=== PATIENT | male | born 1955 | race Caucasian/White ===

== ENCOUNTER 2017-03-10 14:16 | Emergency (ER) | payer OTHER ==
[~2017-03-10 14:16] MED LIST: ADDERALL 10 MG10 M1 PO; ALBUTEROL17 GM; ALLEGRA; ALLEGRA180 MG; AMIODARONE HCL200 MG PO; BETHANECHOL CHL25 M1 PO; BUPROPION HCL200 M1 PO; BUPROPION HCL200 MG PO; BUSPIRONE HCL15 M2 PO; CARTIA XT; CARTIA XT240 MG; CATAPRES0.1 M1 PO; CATAPRES0.1 MG PO; CLARITIN-D 241 EAC2 PO; CVS SENNA PLUS1 EACH PO; CYMBALTA60 M1 PO; DILTIAZEM 24HR240 M2 PO; DUONEB 2.5-0.5 M3 ML; EPINEPHRINE; EPIPEN0.3 MG/0.2 IM; EPIPEN0.3 MG/0.3 IM; FLUTICASONE PRO16 GM INH; GLUCOSE PO; HUMALOG KW200 UNIT/1 SC; HUMALOG U SC; HUMALOG100 U/ML SQ; HUMULIN R U; HYZAAR; HYZAAR 100-25 T1 TAB; HYZAAR 100-251 EACH PO; IMDUR; IMDUR60 MG; INSULIN PUMP1 EACH; INVOKANA100 MG PO; IPRAT-ALBUT 0.5-3 ML INH; ISOSORBIDE MONO60 M3 PO; KLONOPIN0.5 MG/TAB; LATUDA40 M1 PO; LATUDA40 MG PO; LIPITOR; LIPITOR20 M1 PO; LIPITOR20 MG PO; LIPITOR40 MG; LORATADINE PO; METFORMIN HCL500 M2 PO; MULTAQ400 M1 PO; NASONEX17 GM; NEURONTIN300 M1 PO; NOVOLOG100 U/M; PACERONE100 M1 PO; PATANASE30.5 G1; PATANASE30.5 GM NS; PLAVIX75 M1 PO; PLAVIX75 MG; POLYETHYLENE G255 G1 PO; PREDNISONE10 M1 PO; PREDNISONE10 MG; PREDNISONE5 M1 PO; PROTONIX; PROTONIX40 M2 PO; PROTONIX40 MG; PROVENTIL HFA6.7 G1 INH; PROVENTIL HFA6.7 GM INH; PROVENTIL17 GM; PSEUDOEPHEDRINE PO; PULMICORT; PULMICORT0.5 MG/2 M; RITALIN10 MG; ROSUVASTATIN5 MG/TAB PO; SINGULAIR; SINGULAIR10 M1 PO; SINGULAIR10 MG; SINGULAIR10 MG PO; SPIRIVA18 MC1 INH; SPIRIVA18 MCG IH; SYMBICORT 160-1 PUFF INH; SYMBICORT 16010.2 GM IH; SYMLINPEN 1202.7 ML; THEOPHYLLINE A450 MG PO; THEOPHYLLINE300 MG INH; THEOPHYLLINE600 MG PO; TIAZAC240 MG PO; TOPAMAX15 MG; TOPAMAX25 MG; TRICOR145 M2 PO; TYLENOL500 MG; UNIPHYL; UNIPHYL400 MG; VITAMIN D250000 UNI1 PO; VITAMIN D35000 UNI1 PO; WELLBUTRIN SR200 M2 PO; WELLBUTRIN SR200 MG; WELLBUTRIN XL300 MG; XARELTO20 M1 PO; XOLAIR; XOPENEX1.25 MG/1 IH; XOPENEX1.25 MG/2 INH; XOPENEX1.25 MG/3; ZETIA10 M1 PO; ZETIA10 MG; ZYRTEC10 MG
[2017-03-10] MEDS ORDERED: PREDNISONE5 M1 PO (14:23)
== END 2017-03-10 16:46 ==
LOC: EDMED 14:16
DX: S16.1XXA Strain of muscle, fascia and tendon at neck level, initial encounter (principal); R07.89 Other chest pain; J45.909 Unspecified asthma, uncomplicated; I48.91 Unspecified atrial fibrillation; I25.10 Atherosclerotic heart disease of native coronary artery without angina pectoris; I10 Essential (primary) hypertension; E11.9 Type 2 diabetes mellitus without complications; J44.9 Chronic obstructive pulmonary disease, unspecified; G47.33 Obstructive sleep apnea (adult) (pediatric); Z79.51 Long term (current) use of inhaled steroids; Z79.4 Long term (current) use of insulin; Z79.899 Other long term (current) drug therapy; V49.40XA Driver injured in collision with unspecified motor vehicles in traffic accident, initial encounter; Y92.410 Unspecified street and highway as the place of occurrence of the external cause